=== PATIENT | female | born 1940 | race Caucasian/White ===

== ENCOUNTER 2020-10-01 07:20 | Day surgery (SDC) | payer MEDICARE, OTHER ==
[~2020-10-01] VITALS: Ht 157.5 cm; Wt 72.7 kg
[~2020-10-01 07:20] MED LIST: ADULT ASPIRIN R81 MG PO; CO Q-10100 MG PO; DHEA TABLET1 EACH PO; GARLIC1500 MG PO; IRON18 MG PO; MELALEUCA10 ML SUB-Q; MULTI-VITAMIN1 EACH PO; SIMVASTATIN10 MG PO; TURMERIC COMPL1 EACH PO; VITAMIN B122500 MCG PO; VITAMIN D325 MC2 PO
--- NOTE | 2020-10-01 09:01 | NUR ---
10/01/20 0901 Nannette Fleming 0864-PATIENT ARRIVED TO PACU ON 2L NC RR EVEN. PATIENT REACTIVE TO VERBAL STIMULI OPENING EYES AND IMMEDIATELY CLOSES NOT ANSWERING QUESTIONS.VERY DROWSY PATIENT LAYING LEFT LATERAL. ABDOMEN ROUND AND SOFT ENCOURAGED TO PASS GAS. IVF INFUSING.
--- NOTE | 2020-10-02 08:55 | OR ---
[facility] [address] [place], [place] [address] Signed DATE OF OPERATION: 10/01/2020 SURGEON: Aleshia Laboy MD PREOPERATIVE DIAGNOSES: 1. Distal esophageal dysphagia. 2. History of peptic ulcer disease. 3. Heartburn. 4. Diverticulosis. 5. Positive fit test 2019. POSTOPERATIVE DIAGNOSES: 1. Moderate hemorrhagic gastroduodenitis. 2. Moderate-sized antral and gastric ulcer. 3. Minimal sigmoid diverticulosis. 4. Minimal internal hemorrhoids. 5. Long redundant colon with narrow, tortuous sigmoid colon. PROCEDURES: 1. EGD with CLOtest and biopsies of the pyloric bulb and antrum. 2. Colonoscopy without biopsy. ESTIMATED BLOOD LOSS: None. INDICATIONS: Cassy is an 80-year-old female asked to see me for both upper and lower endoscopy. 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 They just got back from vacation. She has been complaining of distal esophageal dysphagia, particularly with her vitamins. She thinks it is new and it is bothering her quite a bit. She has been using Pepcid and Tums as needed. She told me when the kids were young, she had an ulcer for a while. She is not sure about true acid reflux, but she is quite convinced she has heartburn. She talked about a colonoscopy in 2014 which demonstrated diverticulosis. There has been no family history of colon cancer or polyps. One year ago, she had a positive fit test. However, the COVID pandemic kept her from coming for her colonoscopy. Otherwise, really no lower GI complaints. In the office, I gave her pamphlets on both upper and lower endoscopy. We reviewed the nature of the two tests along with the risks including, but not limited to gas bloating, crampy abdominal pain, bleeding, perforation requiring surgery, and missed diagnosis. We also reviewed the need for IV conscious sedation. She had expressed understanding and wished Electronically Signed By: ALESHIA LABOY MD 10/02/20 0855 PATIENT NAME: CASSY ZAMORA OPERATIVE REPORT DATE OF : 40 REPORT #: [id number] PHYSICIAN: ALESHIA LABOY MD PCP: JOSIE LAMAS PAC REPORT IS CONFIDENTIAL AND NOT TO BE RELEASED WITHOUT AUTHORIZATION [facility] [address] [place], [place] [address] Signed to proceed. DESCRIPTION OF PROCEDURE: Cassy was taken into our endoscopy suite and placed in a supine semi-recumbent position. The posterior oropharynx was anesthetized with lidocaine spray. A bite block was utilized for the case. She was given a total of 9 mg of Versed and 150 mcg of fentanyl to cover both cases. The adult gastroscope was introduced and advanced under direct visualization out into the third portion of the duodenum without difficulty. The duodenum was unremarkable. The pyloric channel and stomach showed moderate diffuse hemorrhagic gastritis. She has a moderate-sized ulcer in her antrum as well. We took biopsies in the pyloric bulb and antrum for pathologic review. We took an additional biopsy from antrum for CLOtest. Upon retroflexion of the scope, I really cannot appreciate an obvious hiatal hernia. If she has a hiatal hernia, it will be quite small. The barium swallow did not show hiatal hernia nor any acid reflux. She had normal esophageal motility and no strictures. The scope was withdrawn up to the area of GE junction, which was compliant without stricture. Minimal irritation on the Z-line. No distal esophagitis. No Robbins's mucosa. The middle and upper esophagus were unremarkable. After this, the gas was suctioned out and the gastroscope removed. Cassy tolerated the upper endoscopy quite well. Cassy was rotated into the left lateral decubitus position. She was maintained on IV sedation with Versed and fentanyl. A digital rectal exam was performed and this was unremarkable. The adult colonoscope was introduced and advanced under direct visualization of camera. She has a long narrow tortuous sigmoid colon. Around 35 cm, we had quite a bit of difficultly to get our camera through. It took additional sedation, abdominal compression and rotating Cassy into the supine position or get the camera to advance. Even then, we struggled to get the camera around to the cecum. She was awake and moaning a bit throughout that procedure. In the future, she would be much better served with monitored anesthesia care with propofol infusion. Her prep was quite excellent. We could easily see the appendiceal orifice. We slowly withdrew the scope. She does have a long redundant colon. She has a few diverticula in the sigmoid colon. The sigmoid colons were long, narrow and redundant and tortuous as well. The rectum was unremarkable. Upon retroflexion of scope, she has very minimal internal hemorrhoid tissue. After this, the gas was suctioned out and the colonoscope removed. Overall, Cassy tolerated procedure well. RECOMMENDATIONS: I will see Cassy back in my office in 7 to 14 days to review her results. She might consider monitored anesthesia care in the future for colonoscopies. In addition, we are going to write for omeprazole 20 mg p.o. b.i.d. for two months and then once a day thereafter. She needs to discontinue aspirin for two months to allow the ulcer to heal. Electronically Signed By: ALESHIA LABOY MD 10/02/20 0855 PATIENT NAME: CASSY ZAMORA OPERATIVE REPORT DATE OF : 40 REPORT #: [id number] PHYSICIAN: ALESHIA LABOY MD PCP: JOSIE LAMAS REPORT IS CONFIDENTIAL AND NOT TO BE RELEASED WITHOUT AUTHORIZATION [address] [address] Signed Alsehia Laboy MD [facility] /[id number] cc: BIANKA Yoo MD Copies: JOSIE LAMAS ANDREW L MD ~ Electronically Signed By: ALESHIA LABOY MD 10/02/20 0855 PATIENT NAME: CASSY ZAMORA OPERATIVE REPORT DATE OF : 40 REPORT #: [id number] PHYSICIAN: ALESHIA LABOY MD PCP: ADAMS,JOSIE PAC REPORT IS CONFIDENTIAL AND NOT TO BE RELEASED WITHOUT AUTHORIZATION
--- NOTE | 2020-10-02 16:26 | PATH ---
[facility] [address] [place], [place] [address] Signed SPECIMEN(S): A DUODENAL BIOPSY SPECIMEN(S): B ANTRUM/PYLORUS BIOPSY SPECIMEN SOURCE: A. DUODENAL BIOPSY B. ANTRUM/PYLORUS BIOPSY CLINICAL HISTORY: History of diverticulosis, dysphagia, acid reflux. Post-op: Gastroduodenitis, internal hemorrhoids. EGD and colonoscopy. MICROSCOPIC DESCRIPTION: Histologic sections of all submitted blocks are examined by light microscopy. These findings, together with the gross examination, support the pathologic diagnosis. FINAL PATHOLOGIC DIAGNOSIS: A. Duodenum, biopsy: - Duodenal mucosa with mild Maryan's gland hyperplasia. - Negative for increased intraepithelial lymphocytes or villous blunting. - Negative for dysplasia or malignancy. B. Stomach, antrum/pylorus, biopsy: - Antral mucosa with chronic, active gastritis. - Positive for Helicobacter organisms (HE and IHC). - Negative for dysplasia or malignancy. COMMENT: Regarding specimen B: An H. pylori immunohistochemical stain (with appropriately staining controls) is positive for Helicobacter organisms. NAL:cml:C2NR GROSS DESCRIPTION: Two specimens are received in two containers, labeled "Huwe." A. The specimen, labeled and designated "Huwe, duodenum biopsy," is received in formalin and consists of one dodge soft tissue fragment that measures 0.2 cm in greatest dimension. The specimen is entirely submitted in cassette (A1). B. The specimen, labeled and designated "Huwe, antrum/pylorus biopsy," is received in formalin and consists of one dodge soft tissue fragment that measures 0.2 cm in greatest dimension. The specimen is entirely submitted in cassette (B1). VB(under the direct supervision of a pathologist) PATIENT NAME: BRITTANEY ZAMORA PATHOLOGY DATE OF : 40 REPORT #: [id number] PHYSICIAN: JIM PATHOLOGY PCP: JOSIE LAMAS PAC REPORT IS CONFIDENTIAL AND NOT TO BE RELEASED WITHOUT AUTHORIZATION [facility] [address] [place] [address] Signed ADDITIONAL NOTES: Immunohistochemical and/or in situ hybridization studies were performed on this case with the appropriate positive controls that react as expected. This test was developed and its performance characteristics determined by [facility]. It has not been cleared or approved by the U.S. Food and Drug Administration. The FDA has determined that such clearance or approval is not necessary. This test is used for clinical purposes. It should not be regarded as investigational or for research. [facility] is certified under the Clinical Laboratory Improvement Amendments of 1988 (CLIA) as qualified to perform high complexity clinical laboratory testing. This assay has not been validated for specimens that have been decalcified. The Gross Description was prepared using a voice recognition system. The report was reviewed for accuracy; however, sound-alike word errors, addition and/or deletions may occur. If there is any question about this report, please contact Client Services. PERFORMING LABORATORY: The technical component was performed by [facility] [address] (Head Batcher: Minal Ambrocio MD; CLIA# [id number]). [facility] [address] [address] (CLIA# [id number]). Diagnostician: Olive Salazar MD Pathologist Electronically Signed 10/02/2020 Copies: ~ PATIENT NAME: YVONNEPATRICIABRITTANEYLOU GARYA PATHOLOGY DATE OF : 40 REPORT #: [id number] PHYSICIAN: JIM [place] PCP: JOSIE LAMAS PAC REPORT IS CONFIDENTIAL AND NOT TO BE RELEASED WITHOUT AUTHORIZATION
== END 2020-10-01 10:15 | disposition home or self-care (01) ==
LOC: OPS 07:20 → DS 07:20 → OPS 08:15 → DS 10-15 06:45
PROVIDERS: ATTEND Colon & Rectal Surgery
PROC: 0DB78ZX Excision of Stomach, Pylorus, Via Natural or Artificial Opening Endoscopic, Diagnostic (ICD-10-PCS; 2020-10-01)
PROC: 0DJD8ZZ Inspection of Lower Intestinal Tract, Via Natural or Artificial Opening Endoscopic (ICD-10-PCS; principal; 2020-10-01 08:15)
PROC: 0DB98ZX Excision of Duodenum, Via Natural or Artificial Opening Endoscopic, Diagnostic (ICD-10-PCS; 2020-10-01 08:15)
DX: K25.9 Gastric ulcer, unspecified as acute or chronic, without hemorrhage or perforation (principal); K63.89 Other specified diseases of intestine; K29.50 Unspecified chronic gastritis without bleeding; K29.90 Gastroduodenitis, unspecified, without bleeding; K57.30 Diverticulosis of large intestine without perforation or abscess without bleeding; K64.8 Other hemorrhoids; Q43.8 Other specified congenital malformations of intestine; K21.9 Gastro-esophageal reflux disease without esophagitis; E03.9 Hypothyroidism, unspecified; E78.00 Pure hypercholesterolemia, unspecified; E55.9 Vitamin D deficiency, unspecified; M19.90 Unspecified osteoarthritis, unspecified site; Z90.49 Acquired absence of other specified parts of digestive tract; Z79.899 Other long term (current) drug therapy; Z79.82 Long term (current) use of aspirin; Z88.5 Allergy status to narcotic agent; Z91.030 Bee allergy status; Z91.013 Allergy to seafood
CPT/HCPCS: 86677; 88305; 88342; 99153; G0500; J0690; J2250; J3010; J7121